=== PATIENT | male | born 1970 | race American Indian/Alaskan Native ===

== ENCOUNTER 2017-09-09 14:45 | Inpatient (IN) | payer OTHER ==
[2017-09-09 15:17] VITALS: BMI 26.4
[2017-09-09 16:26] LABS: BASO % 0.6 % (0.0-2.0); EOS # 0.1 K/uL (0.0-0.7); EOS % 0.8 % (0.0-4.0); HEMOGLOBIN 15.3 g/dL (12.0-18.0); LYMPH # 2.4 K/uL (1.0-4.3); LYMPH % 36.5 % (20.0-40.0); MEAN CELL VOLUME 93.9 fL (80.0-94.0); MEAN CORPUSCULAR HEMOGLOBIN 32.3 pg (27.0-31.0); MEAN CORPUSCULAR HGB CONC 34.4 g/dL (33.0-37.0); MEAN PLATELET VOLUME 7.6 fL (7.2-11.7); MONO # 0.4 K/uL (0.0-0.8); MONO % 6.5 % (0.0-10.0); NEUT # 3.7 K/uL (1.8-7.0); NEUT % 55.6 % (50.0-75.0); NRBC % 0.1 % (0.0-2.0); RBC 4.74 Mil/uL (4.40-5.90); RED CELL DISTRIBUTION WIDTH 13.3 % (11.5-14.5); WHITE BLOOD COUNT 6.6 K/uL (4.8-10.8)
[2017-09-09 16:28] LABS: SQUAMOUS EPITHIAL < 1 /hpf (0-5); URINE BILIRUBIN NEGATIVE (NEGATIVE); URINE BLOOD NEGATIVE (NEGATIVE); URINE CLARITY Clear (Clear); URINE COLOR Yellow (YELLOW); URINE GLUCOSE (UA) NORMAL (Normal); URINE LEUKOCYTE ESTERASE NEG Leu/uL (Negative); URINE PROTEIN NEGATIVE (NEGATIVE)
[2017-09-09 16:58] LABS: ALB/GLOB RATIO 1.3 (1.0-2.1); ALBUMIN 4.3 g/dL (3.5-5.0); ALT/SGPT 35 U/L (21-72); AST/SGOT 48 U/L (17-59); BLOOD UREA NITROGEN 20 mg/dL (9-20); CALCIUM 8.8 mg/dl (8.6-10.4); GFR AFRICAN-AMERICAN > 60; GFR NON-AFRICAN AMERICAN 55
[2017-09-09 17:03] LABS: BARBITURATES, UR NEGATIVE (NEGATIVE); BENZODIAZEPINES, UR NEGATIVE (NEGATIVE); OPIATES, UR NEGATIVE (NEGATIVE); PHENCYCLIDINE, UR NEGATIVE (NEGATIVE)
--- NOTE | 2017-09-09 17:03 | C.PDOC ---
History Of Present Illness 47 y/o male presents to the ER requesting detox from alcohol. Patient states he has been drinking intermittently for 30 years. Notes that he was sober last month for adan for entire month. LAst drink at 3am. Patient denies having withdrawal seizures, tremors, suicidal ideation, and homicidal ideation. Time Seen by Provider: 09/09/17 15:36 Chief Complaint (Nursing): Substance Abuse History Per: Patient History/Exam Limitations: no limitations Past Medical History Reviewed: Historical Data, Nursing Documentation, Vital Signs Vital Signs: Last Vital Signs Temp 97.6 F 09/10/17 16:00 Pulse 55 L 09/10/17 16:00 Resp 18 09/10/17 16:00 BP 119/74 09/10/17 16:00 Pulse Ox 97 09/10/17 18:13 - Medical History PMH: No Chronic Diseases Other Surgeries: Hx of surgery Family History: States: No Known Family Hx - Social History Hx Alcohol Use: Yes Hx Substance Use: Yes - Immunization History Hx Tetanus Toxoid Vaccination: Yes Hx Influenza Vaccination: Yes Hx Pneumococcal Vaccination: Yes Review Of Systems Except As Marked, All Systems Reviewed And Found Negative. Constitutional: Negative for: Fever, Chills Physical Exam - Physical Exam Appears: Well, Non-toxic, No Acute Distress Skin: Normal Color, Warm, Dry Head: Atraumatic, Normacephalic Eye(s): bilateral: Normal Inspection, EOMI Nose: Normal Oral Mucosa: Moist Neck: Normal ROM, Supple Chest: Symmetrical Cardiovascular: Rhythm Regular Respiratory: Normal Breath Sounds, No Rales, No Rhonchi, No Wheezing Gastrointestinal/Abdominal: Normal Exam, Soft, No Tenderness, No Guarding, No Rebound Extremity: Normal ROM Neurological/Psych: Oriented x3, Normal Speech ED Course And Treatment - Laboratory Results Result Diagrams: 09/09/17 16:19 09/09/17 16:19 O2 Sat by Pulse Oximetry: 97 (RA) Pulse Ox Interpretation: Normal Progress Note: Labs and UA ordered. PT was seen and evaluated by asbestos hazard abatement worker who discussed case with Dr Glass and agreed upon plan and admission. Disposition - Disposition Disposition: HOSPITALIZED Disposition Time: 13:00 Condition: STABLE - Clinical Impression Clinical Impression: Alcohol use disorder, severe, dependence - PA / CUSTOMER SERVICES COORDINATOR / Resident Statement MD/DO has reviewed & agrees with the documentation as recorded. - Scribe Statement The provider has reviewed the documentation as recorded by the Ellieibe Shane Chavez Provider Attestation All medical record entries made by the Ellieibbrittany were at my direction and personally dictated by me. I have reviewed the chart and agree that the record accurately reflects my personal performance of the history, physical exam, medical decision making, and the department course for this patient. I have also personally directed, reviewed, and agree with the discharge instructions and disposition.
--- NOTE | 2017-09-09 17:56 | PCM.BM ---
<Eric Carolina - Last Filed: 09/09/17 17:55> Treatment Plan Problems - Problems identified on initial assessmt potential for alcohol withdrawal Date Initiated: 09/09/17 Time Initiated: 17:55 Status: Active - Milieu Protocol Maintain good personal hygiene: daily Encourage regular showers, daily Remind patient to perform daily oral care, daily Assist patient to perform ADL's Conduct patient checks and document Observation sheet: Q15 minutes Maintain personal safety: every shift Educate patient to report safety concerns to staff, every shift Monitor environment for contraband/sharps Medication safety: Monitor for expected outcome, potential side effects: every shift, Assess barriers to learning: every shift, Assess readiness for medication education: every shift <Rd Glass - Last Filed: 09/10/17 14:31> - Diagnosis (1) Alcohol use disorder, severe, dependence Status: Acute Interventions: 09/10/17 14:31 * Assess 7x/week regarding severity of withdrawal * Educate regarding risks, benefits, side effects and alternatives of medications * Use Motivational Interviewing for abstinence * Use CBT for relapse prevention * Medication management for withdrawal symptoms * Encourage medication assisted treatment *
[2017-09-09 18:07] VITALS: RESP 18
--- NOTE | 2017-09-10 14:32 | PCM.PSYCH ---
Initial Psychiatric Evaluation - Initial Psychiatric Evaluation Type of Admission: Voluntary Legal Status: Capacity Chief Complaint (in patient's own words): "Alcohol" History of Present Illness and Precipitating Events: The patient is seen, chart reviewed and case discussed. This is a 47-year-old -[place] male, single with 4 children of whom 2 are adults and 2 are minors but they live with their mother. 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 He is here for alcohol detox; drinking 1.5 bottle of vodka daily for the last 1 month. He started when he was 17 years old but has never had detox until now. He says he came because he wasn't feeling well when he stopped it. No rehabilitation or no AA. He has mild withdrawal symptoms at this point. He also smokes marijuana but denies cigarettes and all other drugs. Past psych history: Denies past or present psych symptoms or history. Family psych history: Denies Medical history: Denies Current Medications: Active Medications Generic Name Dose Route Start Last Admin Trade Name Alysha PRN Reason Stop Dose Admin Chlordiazepoxide 25 mg 09/09/17 21:00 09/09/17 22:11 Librium PO 25 mg Q4H PRN Administration Alcohol Withdrawal Folic Acid 1 mg 09/10/17 14:30 Folic Acid PO DAILY [facility] Ibuprofen 600 mg 09/09/17 22:00 09/09/17 22:10 Motrin Tab PO 600 mg Q8 PRN Administration Pain, moderate (4-7) Multivitamins 1 tab 09/10/17 14:30 Hexavitamin PO DAILY [facility] Thiamine HCl 100 mg 09/10/17 14:30 Vitamin B1 Tab PO DAILY [facility] Trazodone HCl 50 mg 09/09/17 22:00 09/09/17 22:10 Desyrel PO 50 mg HS PRN Administration Insomnia Past Psychiatric History - Past Psychiatric History Previous Treatment History: None Pertinent Medical Hx (Current Medical&Sleep Prob, Allergies): Allergies Allergy/AdvReac Type Severity Reaction Status Date / Time No Known Allergies Allergy Verified 02/22/15 19:21 No Known Home Med 02/22/15 Review of Systems - Neurological Neurological: UNREMARKABLE - Psychiatric Psychiatric: Abnormal Sleep Pattern, Anxiety, Difficulty Concentrating. absent : Hallucinations, Homicidal Ideation, Paranoia, Suicidal Ideation Mental Status Examination - Personal Presentation Personal Presentation: Looks stated age - Affect Affect: Constricted - Motor Activity Motor Activity: Calm - Reliability in Providing Information Reliability in Providing Information: Good - Speech Speech: Organized - Mood Mood: Anxious - Formal Thought Process Formal Thought Process: No Impairment - Cognitive Functions Orientation: Person, Place, Situation, Time Sensorium: Alert Attention/Concentration: Attentive Estimate of Intelligence: Average Judgement: Intact, as evidence by: Insight regarding need for hospitalization Memory: Recent intact, as evidence by: Ability to recall events of the day, Remote intact, as evidenced by: Abilit to recall sig. life events - Risk Risk: Withdrawal, Diminished functioning - Strength & Assets Inventory Strength & Assets Inventory: Cooperative - Limitations Limitations: Other DSM 5 DX - DSM 5 DSM 5 Diagnosis: Alcohol use d/o- severe Cannabis use d/o- severe - Recommended/Plan of Treatment Treatment Recommendations and Plan of Treatment: Taper with librium when he withdraws Gabapentin for augmentation if needed As needed medications All risks, benefits and alternatives of the meds discussed, and the pt agreed and understood. Attend groups and activities Supportive therapy and psychoeducation OK for abstinence CBT for relapse prevention Encourage MAT - Naltrexone started Refer to rehab or IOP, and self-help groups Smoking cessation with OK Nicotine patch if needed 34 min Projected ELOS: 2-3 days Prognosis: good with treatment - Smoking Cessation Smoking Cessation Initiated: No Reason for not providing: non-smoker
[2017-09-10] MEDS: Multiple Vitamins Tab PO SCH (14:45)
--- NOTE | 2017-09-11 08:45 | PCM.PYCHDC ---
Mental Status Examination - Mental Status Examination Orientation: Person, Place, Situation, Time Memory: Intact Mood: Anxious Affect: Constricted Speech: Appropriate Attention: WNL Concentration: Poor Association: WNL Fund of Knowledge: WNL Formal Thought Process: No Impairment Suicidal Ideation: No Current Homicidal Ideation?: No Discharge Summary - Discharge Note Reason for Hospitalization: Alcohol dependence Consultations:: List each consultation separately and include: 1. Reason for request. 2. Findings. 3. Follow-up Summary of Hospital Course include:: 1. Description of specific treatment plan utilized for patients during their course of treatmen. 2. Summarize the time- course for resolution of acute symptoms and/or regressed behaviors. 3. Describe issues identified and worked on during hospitalization. 4. Describe medication utilized. 5. Describe medical problems identified and treated. 6. Reassessment of suicide risk Summary of Hospital Course: The patient is seen, chart reviewed and case discussed. On admission: This is a 47-year-old -Citizen Of [place] male, single with 4 children of whom 2 are adults and 2 are minors but they live with their mother. 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 He is here for alcohol detox; drinking 1.5 bottle of vodka daily for the last 1 month. He started when he was 17 years old but has never had detox until now. He says he came because he wasn't feeling well when he stopped it. No rehabilitation or no AA. He has mild withdrawal symptoms at this point. He also smokes marijuana but denies cigarettes and all other drugs. Past psych history: Denies past or present psych symptoms or history. Family psych history: Denies Medical history: Denies Hospital course: The pt was admitted and started on treatment with psychotherapy, support, psychoeducation and medications. [facility] and CBT used. The pt attended groups and activities, as well as milieu therapy. All the risks and benefits of medications are discussed and the patient understood and agreed. The pt improved with the treatments provided. After care discussed with the patient. He will attend [facility]. He is discharged early b/c he did not have significant withdrawal requiring full detox. He understood and agreed. Naltrexone started - he understood risks. - Final Diagnosis (DSM 5) Condition upon Discharge: STABLE DSM 5: Alcohol use d/o- severe Cannabis use d/o- severe Disposition: HOME/ ROUTINE Follow-up Treatment Plan: Continue below medications after discharge. Follow after care plan as discussed. Use relapse prevention skills Return to ER or call 911 if suicidal, homicidal or symptoms relapse. Stay away from stress, alcohol and drugs. See primary doctor regularly and get labs. Prescriptions/Medication Reconciliation: Naltrexone [Revia] 50 mg PO QPM #30 tab traZODone [Desyrel] 50 mg PO HS PRN #30 tab PRN Reason: Insomnia
[2017-09-11] MEDS: Multiple Vitamins Tab PO SCH (09:50)
[2017-09-11 10:12] VITALS: BP 108/69; PULSE 63; TEMP 97.6; O2SAT 99
== END 2017-09-11 10:00 | disposition home or self-care (01) | DRG 751 ==
LOC: C.ER 14:45 → C.7D 17:44
PROVIDERS: ADMIT Psychiatry & Neurology Psychiatry; ATTEND Psychiatry & Neurology Psychiatry
PROC: HZ2ZZZZ Detoxification Services for Substance Abuse Treatment (ICD-10-PCS; principal; 2017-09-09)
PROC: HZ59ZZZ Individual Psychotherapy for Substance Abuse Treatment, Supportive (ICD-10-PCS; 2017-09-09)
PROC: HZ46ZZZ Group Counseling for Substance Abuse Treatment, Psychoeducation (ICD-10-PCS; 2017-09-09)
DX: F10.20 Alcohol dependence, uncomplicated (principal); F12.90 Cannabis use, unspecified, uncomplicated